=== PATIENT | male | born 1990 | race Caucasian/White ===

== ENCOUNTER 2020-01-24 16:02 | Outpatient (REF) | payer OTHER, SELFPAY ==
--- NOTE | 2020-01-24 16:14 | XR_ITS ---
EXAMINATION: XR CALCANEUS, BILATERAL CLINICAL INFORMATION: Pain. COMPARISON: None TECHNIQUE: Each 2 views. FINDINGS: RIGHT CALCANEUS: No acute fracture is seen. On the provided views, the subtalar articulations appear grossly maintained. Tiny spurring at the Achilles tendon insertion. Base of the 5th metatarsal is intact. LEFT CALCANEUS: No acute fracture or dislocation is seen. Subtalar articulations appear grossly maintained. No significant calcaneal spurring. Base of the 5th metatarsal is intact. IMPRESSION: No evidence of acute osseous abnormality.
== END 2020-01-24 16:03 | disposition home or self-care (01) ==
LOC: HO.HMGCX 16:02
PROVIDERS: PCP Nurse Practitioner Family; Visit Provider Nurse Practitioner Family
DX: M79.672 Pain in left foot (principal); M79.671 Pain in right foot
CPT/HCPCS: 73650

== ENCOUNTER 2020-05-23 11:00 | Outpatient (RCR) | payer OTHER, SELFPAY ==
--- NOTE | 2020-02-22 13:57 | MHC.PT.EP ---
[facility] [place] Office [place] Office [place] Office [address] [place] [address] [phone] F: [phone] F: [phone] F: [phone] F: [phone] Physical Therapy Plan of Care Date of Evaluation: 02/22/20 Date of Surgery: n/a Diagnosis: Plantar Fasciitis Assessment: Patient is a 29 year old R handed male from [facility] who presents with s/s consistent with b/l plantar fasciitis. 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 Patient past medical history is unremarkable. Current impairments include pain, strength, activity tolerance and functional mobility. Functional limitations include decreased ability to walk, stand, transfer, negotiate stairs, and perform weight bearing activities.. Patient is motivated with good rehab potential. Skilled PT will address impairments and functional limitations in order to achieve goals. Frequency and Duration: The patient will be seen 1x/week for 6 weeks Short Term Goals: I with HEP - 2 weeks Hip strength 4-/5 on L - 3 weeks Acquired proper orthotics - 3 weeks Care Home Goals: able to jog 1 mile no pain - 5 weeks no pain with daily activities - 6 weeks Treatment Plan: Modalities to reduce pain, spasms and effusion. Manual therapy to restore motion and function. Therapeutic exercise to improve strength and flexibility. Neuromuscular re-education for posture and balance. Therapeutic activities to return to functional activities of daily living. Please sign and return to therapist. Thank you for your referral.
--- NOTE | 2020-07-02 13:44 | MHC.PT.DC ---
[facility] Office [place] Office [place] Office [address] [place] [address] [phone] F: [phone] F: [phone] F: [phone] F: [phone] Physical Therapy Discharge Report Diagnosis: Plantar Fasciitis Date of Surgery: n/a Date of Evaluation: 02/22/20 Date of Discharge: 06/12/20 Treatments to Date: 15 Cancellations to Date: No Shows to Date: Discharge Status: Independent with HEP Patient Elected to Stop Discharge Summary: pt notes insurance difficulties with acquiring orthotics. will look into this. jogging on TM went well, no adverse reactions. Overall, he has had improvement on s/s including less pain with ADLs and work, less pain with jogging and starting of work position modifications as able to further maintain improvements. He still does experience discomfort at times with foot pain, often related to work related activities and wearing of boots. We have pursued acquiring orthotics for shoes with a referral from his PCP and contacting [facility] in [place]. However, he was informed it would be $500 out of pocket and no insurance coverage. This has slowed the process. At this time I would love to continue 1x/week for 4 weeks after acquiring orthotic to ensure zoroastrianism of all pain free activities. After ^, he did not follow up with more appts. Electronically signed by: Star Hodges, PT Please sign and return to therapist. Thank you for your referral.
== END 2020-08-24 07:41 | disposition home or self-care (01) ==
LOC: HO.PTCHIC 11:00
PROVIDERS: PCP Nurse Practitioner Family; Visit Provider Nurse Practitioner Family
DX: M79.671 Pain in right foot (principal); M79.672 Pain in left foot
CPT/HCPCS: 97035; 97110; 97112; 97140; 97161; 97530

== ENCOUNTER 2021-04-06 18:37 | Emergency (ER) | payer OTHER, SELFPAY | END 2021-04-06 19:35 | disposition left against medical advice (07) | PROVIDERS: Emergency Provider Emergency Medicine; PCP Nurse Practitioner Family | DX: R50.9 Fever, unspecified (principal) ==

== ENCOUNTER 2021-04-08 18:57 | Outpatient (REF) | payer OTHER, SELFPAY ==
[2021-04-08 19:48] LABS: Influenza A PCR NEGATIVE (Negative); Influenza B PCR NEGATIVE (Negative); Resp Syncy Virus RNA Qual PCR NEGATIVE (Negative); SARS COV2 PCR INHOUSE NEGATIVE (Negative)
== END 2021-04-08 18:58 | disposition home or self-care (01) ==
LOC: HO.LNP 18:57
PROVIDERS: Visit Provider Internal Medicine
DX: R43.9 Unspecified disturbances of smell and taste (principal); Z20.822 Contact with and (suspected) exposure to COVID-19
CPT/HCPCS: 0241U

== ENCOUNTER 2021-06-04 20:25 | Emergency (ER) | payer OTHER, SELFPAY ==
--- NOTE | ~2021-06-04 | XR_ITS ---
EXAMINATION: X-RAY RIGHT WRIST/HAND CLINICAL INFORMATION: Fifth finger laceration with glass. COMPARISON: None. TECHNIQUE: 3 views of the right wrist/hand were obtained. XR/XR hand wrist RT FINDINGS/IMPRESSION: There is ulnar subluxation of the fifth MCP joint without fractures. There is soft tissue swelling around the fifth digit and ulnar surface of the hand without identifiable radiopaque foreign bodies or subcutaneous air.
[2021-06-04 20:57] VITALS: BP 115/78; PULSE 68; RESP 18; TEMP 37.2; O2SAT 96; BMI 27.8
[2021-06-04] MEDS: Lidocaine HCl 2 % MPF 5 ML VIAL INFILTRATI ×2 (21:52→21:53)
--- NOTE | 2021-06-04 22:43 | ED.WOUNDLAC ---
HPI - Wound/Laceration General Chief Complaint: Wound/Laceration Stated Complaint: Hand Lac Time Seen by Provider: 06/04/21 20:31 Source: patient Mode of arrival: ambulatory Limitations: no limitations History of Present Illness HPI narrative: 30 yold male presents to the ED for right fifth finger laceration. Patient states a vase broke and the glass from the vase cut his finger. patient states complete range of motion of right fifth finger lacertion. patient denies any other trauma. Related Data Previous Rx's Medication Instructions Recorded orthotics #1 ea 05/16/20 cephalexin 500 mg capsule 500 mg PO QID 7 Days #28 cap 06/04/21 naproxen 500 mg tablet 500 mg PO BID PRN 10 Days #20 tab 06/04/21 Allergies Allergy/AdvReac Type Severity Reaction Status Date / Time No Known Allergies Allergy Verified 04/08/21 16:17 Review of Systems Review of Systems: right finger laceration Yes all other systems are reviewed and are negative PMFSH Past Medical History Medical History Heel pain, bilateral Varicocele Surgical History History of nasal surgery Family History Family History Father No problems noted. Mother Lupus Social History Social History Alcohol intake: current Patient Tobacco Use Status: Never used Tobacco Advance Directives: No Physical Exam Vital Signs: Vital Signs: Last Vital Signs Temp 99 F 06/04/21 20:57 Pulse 68 06/04/21 20:57 Resp 18 06/04/21 20:57 BP 115/78 06/04/21 20:57 Pulse Ox 96 06/04/21 20:57 BMI result Body Mass Index 27.8 Const: General: cooperative, healthy appearing, comfortable, no acute distress, well developed, alert, awake and Physically active Orientation/consciousness: patient oriented x3 HENMT: Head: Yes normal to inspection, Yes No palpable skull fracture present, Yes normocephalic, Yes atraumatic and No abrasion Eyes: General: appearance normal, both eyes and all related structures Neck: Neck: Yes normal visual inspection, Yes full ROM, Yes no lymphadenopathy, Yes no meningeal signs, Yes trachea midline, Yes supple, No anterior neck swelling and No tender Chest: Chest palpation & inspection: normal inspection of the chest and normal palpation of entire chest wall Resp: Effort & Inspection: normal respiratory effort and able to speak in complete sentences Auscultation: clear to auscultation bilaterally Cardio: Jugular venous distension: no JVD Heart sounds: S1 normal heart sound present and S2 normal heart sound present GI: Inspection: Yes normal to inspection and No abdominal wall ecchymosis Palpation (GI): Soft to palpation, not firm, nontender, no guarding and not rigid : General: No CVA tenderness and Yes no CVA tenderness Back/Spine/Pelvis: Back: no CVA tenderness, No CVA tenderness and No back tenderness Skin: General skin exam: no rashes or lesions noted and elasticity normal Neuro: General: patient oriented x3, gait normal, no meningeal signs and CN's II-XI intact bilaterally Cranial nerves: Yes CN's II-XII intact bilaterally Extrem: General: Yes normal to inspection and Yes full ROM Hand/finger images: 1. positive for superficial laceration. negative for tendon or muscle exposure. patient has complete range of motion of finger. Capillary refills intact. rest of extremity motor, neuro, and vascular exam is intact. Negative for signs of tendon or nerve injury. 2. Abrasion. complete range of motion of finger. capillary refill is intact. 3. Abrasion. complete range of motion of finger. capillary refill is intact. Psych: Appearance: grossly normal, well kempt and not disheveled Course Course Course Narrative: Right hand xray ordered. Reevaluation(s) Reevaluation #1: Wound cleaned with sterile saline and pivodine iodoine. Lidocaine 2% 7ml used for anesthesia for digital block. Size 3 nylon sutures. three sutres placed. Xray is negative for fracture. Xray states 5th finger subluxation. patient 5th finger is not actually in subluxation. Finger is straight and able to straightned. Patient's finger was in a splint and positiioned in ulnar subluxation Time: 22:59 MDM - Wound/Laceration MDM Narrative Medical decision making narrative: laceration Discharge Plan Discharge Clinical Impression: Finger laceration Patient Disposition: Home, Self-Care Instructions: Finger Laceration (ED) Additional Instructions: He will be discharged with antibiotics to prevent infection. Sutures will need to be remade even 9 days. Return to the ED immediately for any swelling, redness, pus discharge, foul odor, bluish black discoloration, inability to move finger, or any other concerning symptoms. You will be given information for hand surgeon follow-up for any complications that may arise. Keep wound dry the next 48 hours. Prescriptions: New cephalexin 500 mg capsule 500 mg PO QID 7 Days Qty: 28 0RF naproxen 500 mg tablet 500 mg PO BID PRN (Reason: pain) 10 Days Qty: 20 0RF No Action (DME) orthotics See Rx Instructions .Route .MEDSUPPLY Qty: 1 0RF Rx Instructions: orthotics, bilat [facility] Referrals: Yancy Dietz MD [Physician] - 2 days (fifth finger laceration) Stand Alone Forms: Work/School Release Discharge Date/Time: 06/04/21 23:24 Print Language: Solomon Islander
[2021-06-04] MEDS: cephALEXin 500 MG CAPSULE PO (23:19)
== END 2021-06-04 23:24 | disposition home or self-care (01) ==
PROVIDERS: Emergency Provider Internal Medicine; PCP Nurse Practitioner Family
DX: S61.216A Laceration without foreign body of right little finger without damage to nail, initial encounter (principal); M79.641 Pain in right hand; W26.9XXA Contact with unspecified sharp object(s), initial encounter; Y93.9 Activity, unspecified; Y92.009 Unspecified place in unspecified non-institutional (private) residence as the place of occurrence of the external cause; Y99.9 Unspecified external cause status; Z79.899 Other long term (current) drug therapy
CPT/HCPCS: 12001; 29130; 73110; 73130; 99283; 99284

== ENCOUNTER 2021-06-08 00:33 | Emergency (ER) | payer OTHER, SELFPAY ==
[2021-06-08 00:44] VITALS: BP 112/80; PULSE 70; RESP 16; TEMP 36.8; O2SAT 100; BMI 27.6
--- NOTE | 2021-06-08 01:04 | ED_ITS ---
HPI - Wound/Laceration General Chief Complaint: Wound/Laceration Stated Complaint: mari came out Time Seen by Provider: 06/08/21 00:37 Source: patient Mode of arrival: ambulatory Limitations: no limitations History of Present Illness HPI narrative: 30 yo male here with for wound check. Patient tells me that he was seen here on June 03 for laceration of the right 5th finger. He had several sutures placed. He tells me that after caring some some groceries his stitches seemed to loosen so he removed several of them. There is still [address] However he tells me that the wound continues to open when he bends his finger and so he feels like he needs to new stitches Related Data Previous Rx's Medication Instructions Recorded orthotics #1 ea 05/16/20 cephalexin 500 mg capsule 500 mg PO QID 7 Days #28 cap 06/04/21 naproxen 500 mg tablet 500 mg PO BID PRN 10 Days #20 tab 06/04/21 Allergies Allergy/AdvReac Type Severity Reaction Status Date / Time No Known Allergies Allergy Verified 04/08/21 16:17 Review of Systems Review of Systems: Yes all other systems are reviewed and are negative Constitutional: Constitutional: Reports no additional constitutional com plaints, Denies body ache(s), Denies chills, Denies fever(s), Denies headache(s) and Denies weakness Eyes: Eyes: Reports no additional eye complaints and Denies change in vision ENT: Reports system reviewed and no additional complaints, except as documented, Denies dizziness, Denies headache(s), Denies nasal congestion, Denies nasal discharge and Denies neck pain Cardiovascular: Cardiovascular: Reports no additional cardiovascular complaints, Denies chest pain, Denies leg edema and Denies dyspnea Respiratory: Respiratory: Reports no additional respiratory complaints, Denies cough and Denies dyspnea Gastrointestinal: Gastrointestinal: Reports no additional gastrointestinal complaints, Denies abdominal pain, Denies diarrhea, Denies nausea and Denies vomiting Genitourinary: Genitourinary: Denies urinary incontinence Musculoskeletal: Musculoskeletal: Reports no additional musculoskeletal complaints, Denies back pain, Denies arthralgias, Denies joint swelling, Denies neck pain, Denies numbness and Denies tingling Integumentary/Breasts: Skin/Breast: Reports system reviewed and no additional complaints, except as docu and Denies rash Comments: +laceration Neurologic: Reports system reviewed and no additional complaints, except as documented, Denies Abnormal speech present, Denies dizziness, Denies headache(s), Denies numbness, Denies tingling and Denies weakness PMFSH Past Medical History Attestation statement: The following information was validated with the patient. Source: old records reviewed and nursing notes reviewed Medical History Heel pain, bilateral Varicocele Surgical History History of nasal surgery Family History Family History Father No problems noted. Mother Lupus Social History Social History Alcohol intake: current Patient Tobacco Use Status: Never used Tobacco Advance Directives: No Advance Directives Information Provided: Yes Physical Exam Vital Signs: Vital Signs: Last Vital Signs Temp 98.2 F 06/08/21 00:44 Pulse 70 06/08/21 00:44 Resp 16 06/08/21 00:44 BP 112/80 06/08/21 00:44 Pulse Ox 100 06/08/21 00:44 BMI result Body Mass Index 27.6 Const: General: cooperative, healthy appearing, comfortable and no acute distress Orientation/consciousness: patient oriented x3 Limitations: no limitations HENMT: Head: Yes normal to inspection Ears: hearing grossly normal bilaterally General nose exam: Normal external nose present Face and sinus: Yes normal facial exam Mouth: Normal oral and palatal mucosa present Throat: Yes posterior oropharynx normal Eyes: General: appearance normal, both eyes and all related structures Pupils: Equal, round and reactive pupils present Neck: Neck: Yes normal visual inspection Chest: Chest palpation & inspection: normal inspection of the chest Resp: Effort & Inspection: normal respiratory effort Auscultation: clear to auscultation bilaterally Cardio: Rate: regular rate Rhythm: regular rhythm Peripheral pulses: Pe ripheral pulses 2+ throughout GI: Inspection: Yes normal to inspection Palpation (GI): Soft to palpation and nontender Auscultation: normal bowel sounds Back/Spine/Pelvis: Thoracic/Lumbar Spine: thoracic and lumbar spine normal to inspection Skin: General skin exam: no rashes or lesions noted Neuro: General: patient oriented x3, no focal motor deficits and normal sensation to monofilament Cranial nerves: Yes Equal, round and reactive pupils present Cognition (Neuro): normal cognition Speech: No Abnormal speech present Gait exam (Neuro): Normal gait present Motor exam (neuro): 5/5 motor strength present throughout Extrem: General: Yes normal to inspection Hand/finger images: 1. 3 cm laceration present with edges that are approximated. There is a single stitch noted on the lateral aspect. There is slight dehiscence of the wound only with flexion of the finger. Course Course Course Narrative: 30-year-old male here with wound check. Patient tells me he had stitches placed to the right 5th finger on the 04 of June. After carrying some groceries he felt like his stitches removed sent and so he removed them himself. He was discharged home with a splint in place and there is concern that the finger was subluxed the patient has been non compliant with this. He has not followed up with Hand surgery as previously recommended. On exam there is a single stitch present. There is slight dehiscence of the wounds with flexion of the finger. The sites were cleansed and topical Steri- Strips were applied. A splint was reapplied to the finger and the patient was recommended to follow-up with hand surgery. Reviewed worrisome signs and symptoms of when to return to the emergency department. Comfortable discharge home. MDM - Wound/Laceration Differential Diagnosis Differential diagnosis: Likely laceration Medical Records Attestation: I reviewed the patient's medical records. Lab Data Attestation: I reviewed the patient's lab results. Discharge Plan Discharge Clinical Impression: Laceration Patient Disposition: Home, Self-Care Instructions: Finger Laceration (ED), Steristrips (ED) Additional Instructions: return for single stitch removal. try to leave the steri strips on till that time. if they fall off then that is okay. use the finger splint to prevent the bending of the finger Prescriptions: No Action (DME) orthotics See Rx Instructions .Route .MEDSUPPLY Qty: 1 0RF Rx Instructions: orthotics, bilat [facility] cephalexin 500 mg capsule 500 mg PO QID 7 Days Qty: 28 0RF naproxen 500 mg tablet 500 mg PO BID PRN (Reason: pain) 10 Days Qty: 20 0RF Referrals: ED Physician,Generic [Physician] - 1 week
== END 2021-06-08 01:27 | disposition home or self-care (01) ==
PROVIDERS: Emergency Provider Emergency Medicine; PCP Nurse Practitioner Family
DX: S61.210D Laceration without foreign body of right index finger without damage to nail, subsequent encounter (principal); X58.XXXD Exposure to other specified factors, subsequent encounter
CPT/HCPCS: 29130; 99283

== ENCOUNTER 2021-08-31 15:22 | Outpatient (REF) | payer OTHER, SELFPAY | END 2021-08-31 15:23 | disposition home or self-care (01) | LOC: HO.LNP 15:22 | PROVIDERS: Visit Provider Physician Assistant | DX: Z13.89 Encounter for screening for other disorder (principal) | CPT/HCPCS: 0241U ==

== ENCOUNTER 2021-09-02 16:48 | Outpatient (REF) | payer OTHER, SELFPAY ==
[2021-09-02 17:37] LABS: Influenza A PCR NEGATIVE (Negative); Influenza B PCR NEGATIVE (Negative); Resp Syncy Virus RNA Qual PCR NEGATIVE (Negative); SARS COV2 PCR INHOUSE NEGATIVE (Negative)
== END 2021-09-02 16:49 | disposition home or self-care (01) ==
LOC: HO.LNP 16:48
PROVIDERS: Visit Provider Physician Assistant
DX: Z20.822 Contact with and (suspected) exposure to COVID-19 (principal); B34.9 Viral infection, unspecified
CPT/HCPCS: 0241U

== ENCOUNTER 2022-02-18 07:24 | Outpatient (REF) | payer OTHER, SELFPAY ==
[2022-02-18 11:49] LABS: MANUAL DIFF FLAG NO
[2022-02-18 11:58] LABS: Basophils Absolute Auto 0.1 X10*3/uL (0.0-0.2); Basophils Percent Auto 0.7 % (0-2); Eosinophils Absolute Auto 0.1 X10*3/uL (0.0-0.4); Eosinophils Percent Auto 1.7 % (0-4); Hematocrit 46.8 % (42.0-52.0); Hemoglobin 15.8 g/dl (14.0-18.0); Imm Gran Abs Auto 0.04 X10*3/uL (0.00-0.03); Imm Gran Pct Auto 0.5 % (0.0-0.4); Lymphocytes Absolute Auto 3.2 X10*3/uL (1.2-4.9); Lymphocytes Percent Auto 37.8 % (20-40); Mean Corpuscular HGB Conc 33.8 g/dl (31.0-36.0); Mean Corpuscular Hemoglobin 28.8 pg (27.0-33.0); Mean Corpuscular Volume 85.2 fL (80.0-98.0); Mean Platelet Volume 11.2 fL (9.4-12.4); Monocytes Absolute Auto 1.1 X10*3/uL (0.1-1.2); Neutrophils Absolute Auto 3.9 x10*3/uL (2.0-8.3); Neutrophils Percent Auto 46.3 % (45-73); Platelet Count 240 X10*3/uL (160-400); Red Blood Count 5.49 X10*6/uL (4.60-5.80); Red Cell Distribution Width 12.4 % (11.0-16.0); White Blood Count 8.4 X10*3/uL (4.8-10.8)
[2022-02-18 12:35] LABS: Alanine Aminotransferase 19 U/L (0-40); Albumin Level 4.5 g/dL (3.5-5.0); Alkaline Phosphatase 91 U/L (39-117); Anion Gap 15 (12-20); Aspartate Amino Transferase 27 U/L (5-37); Bilirubin Total 0.4 mg/dL (0.0-1.0); Blood Urea Nitrogen 16 mg/dL (9-16); Calcium 9.8 mg/dL (8.4-10.2); Carbon Dioxide 27 mmol/L (22-29); Chloride 103 mmol/L (96-108); Cholesterol 174 mg/dL; Estimated Glomerular Filt Rate > 60; Glucose Fasting 97 mg/dL (60-99); HDL Cholesterol 42 mg/dL; LDL Cholesterol Calculated 98 mg/dl; Potassium 4.3 mmol/L (3.3-5.1); Sodium 141 mmol/L (135-145); Total Protein 7.3 g/dL (6.5-8.0); Triglycerides 171 mg/dL
[2022-02-18 13:35] LABS: TSH reflex Free T4 3.14 uIU/mL (0.32-4.0)
[2022-02-18 16:33] LABS: Appearance Urine Turbid; Color Urine Yellow; Glucose Urine UA Negative (Negative); Leukocyte Esterase Urine Negative (Negative); Nitrite Urine Negative (Negative); PH 6.5 (5.0-9.0); Urine Blood Negative (Negative); Urine Ketones Negative (Negative); Urine Protein Negative (Neg-Trace)
== END 2022-02-18 07:25 | disposition home or self-care (01) ==
LOC: HO.HMGCLDS 07:24
PROVIDERS: PCP Nurse Practitioner Family; Visit Provider Nurse Practitioner Family
DX: Z00.00 Encounter for general adult medical examination without abnormal findings (principal)
CPT/HCPCS: 36415; 80053; 80061; 81003; 84443; 85025

== ENCOUNTER 2022-04-10 12:58 | Outpatient (REF) | payer OTHER, SELFPAY | END 2022-04-10 12:59 | disposition home or self-care (01) | LOC: HO.SH 12:58 | PROVIDERS: Visit Provider Nurse Practitioner Family | DX: Z01.118 Encounter for examination of ears and hearing with other abnormal findings (principal); H93.293 Other abnormal auditory perceptions, bilateral; H93.13 Tinnitus, bilateral | CPT/HCPCS: 92557; 92567; 92587 ==

== ENCOUNTER 2022-05-12 15:03 | Outpatient (REF) | payer OTHER, SELFPAY ==
--- NOTE | ~2022-05-12 | XR_ITS ---
EXAMINATION: XR CHEST CLINICAL INFORMATION: Asthma COMPARISON: None TECHNIQUE: 2 views of the chest were obtained. FINDINGS: The lungs are well expanded. There is no focal consolidation, edema, or effusion. No pneumothorax. The cardiomediastinal silhouette is within normal limits. No acute osseous abnormality. XR/XR chest 2V IMPRESSION: Clear lungs.
== END 2022-05-12 15:04 | disposition home or self-care (01) ==
LOC: HO.XRAY 15:03
PROVIDERS: PCP Nurse Practitioner Family; Visit Provider Internal Medicine
DX: R05.9 Cough, unspecified (principal); J45.909 Unspecified asthma, uncomplicated
CPT/HCPCS: 71046; 99202

== ENCOUNTER 2022-05-16 13:48 | Outpatient (REF) | payer OTHER, SELFPAY ==
--- NOTE | 2022-05-16 16:48 | PFT_ITS ---
INDICATION: Cough. SPIROMETRY: FEV1 to FVC of 87% with an FEV1 of 3.25 L, which is 82% predicted and FVC of 3.73 L which is 77% predicted. No significant response to bronchodilators noted. Maximum voluntary ventilation 95% predicted. LUNG VOLUMES: Total lung capacity 85% predicted with a residual volume of 84% predicted and expiratory residual volume of 29% predicted. DIFFUSION CAPACITY: DLCO of 84% predicted. COMPARISONS: None. INTERPRETATION: No obstructive nor restrictive ventilatory defects identified. No significant response to bronchodilators noted. Normal maximum voluntary ventilation. Lung volumes are low normal and the patient also has a low normal diffusion capacity. Clinical correlation warranted. MD ANA Blanca/QUINN / [id number]
== END 2022-05-16 13:49 | disposition home or self-care (01) ==
LOC: HO.RESP 13:48
PROVIDERS: PCP Nurse Practitioner Family; Visit Provider Internal Medicine
DX: J45.909 Unspecified asthma, uncomplicated (principal); R05.9 Cough, unspecified
CPT/HCPCS: 94060; 94727; 94729

== ENCOUNTER → 2022-05-19 11:31 | Outpatient (BNVA) | payer OTHER, SELFPAY | PROVIDERS: PCP Nurse Practitioner Family; Visit Provider Internal Medicine | DX: J45.909 Unspecified asthma, uncomplicated (principal); R05.9 Cough, unspecified; G47.30 Sleep apnea, unspecified | CPT/HCPCS: 99212 ==

== ENCOUNTER 2022-05-22 08:15 | Outpatient (REF) | payer OTHER, SELFPAY ==
--- NOTE | ~2022-05-22 | XR_ITS ---
EXAMINATION: BILATERAL KNEE X-RAYS CLINICAL INFORMATION: Pain in the left knee. Pain in the right knee. COMPARISON: None TECHNIQUE: 2 views of each knee FINDINGS: Right knee: The bones joints and soft tissues are normal without effusion. Left knee: The bones joints and soft tissues are normal without effusion. XR/XR knee LT 2V IMPRESSION: RIGHT KNEE: Normal. LEFT KNEE: Normal.
--- NOTE | ~2022-05-22 | XR_ITS ---
EXAMINATION: LUMBAR SPINE SERIES DORSAL SPINE SERIES. CLINICAL INFORMATION: Pain thoracic spine low back pain. COMPARISON: None TECHNIQUE: 3 views of the lumbar sacral spine and 3 views of the dorsal spine FINDINGS: Dorsal spine: Vertebral bodies normally aligned with normal height. Discs normal. No fracture or degenerative change surrounding soft tissues are normal. Lumbar sacral spine: Vertebral bodies are normal in height with normal alignment. Disc spaces normal. Facets unremarkable. Surrounding soft tissues normal. XR/XR thoracic spine 2V IMPRESSION: 1. Dorsal spine: Normal. 2. Lumbar sacral spine: Normal.
--- NOTE | ~2022-05-22 | XR_ITS ---
EXAMINATION: BILATERAL KNEE X-RAYS CLINICAL INFORMATION: Pain in the left knee. Pain in the right knee. COMPARISON: None TECHNIQUE: 2 views of each knee FINDINGS: Right knee: The bones joints and soft tissues are normal without effusion. Left knee: The bones joints and soft tissues are normal without effusion. XR/XR knee RT 2V IMPRESSION: RIGHT KNEE: Normal. LEFT KNEE: Normal.
--- NOTE | ~2022-05-22 | XR_ITS ---
EXAMINATION: LUMBAR SPINE SERIES DORSAL SPINE SERIES. CLINICAL INFORMATION: Pain thoracic spine low back pain. COMPARISON: None TECHNIQUE: 3 views of the lumbar sacral spine and 3 views of the dorsal spine FINDINGS: Dorsal spine: Vertebral bodies normally aligned with normal height. Discs normal. No fracture or degenerative change surrounding soft tissues are normal. Lumbar sacral spine: Vertebral bodies are normal in height with normal alignment. Disc spaces normal. Facets unremarkable. Surrounding soft tissues normal. XR/XR lumbar spine 2-3V IMPRESSION: 1. Dorsal spine: Normal. 2. Lumbar sacral spine: Normal.
[2022-05-30 18:04] LABS: Testosterone, Free 71.5 pg/mL (35.0-155.0); Testosterone, Total 365 ng/dL (250-1100)
== END 2022-05-22 08:16 | disposition home or self-care (01) ==
LOC: HO.HMGCX 08:15
PROVIDERS: PCP Nurse Practitioner Family; Visit Provider Nurse Practitioner Family
DX: N52.9 Male erectile dysfunction, unspecified (principal); G89.29 Other chronic pain; M25.561 Pain in right knee; M25.562 Pain in left knee; M54.6 Pain in thoracic spine; M54.50 Low back pain, unspecified
CPT/HCPCS: 36415; 72070; 72100; 73560; 84402; 84403